=== PATIENT | female | born 1965 ===

== ENCOUNTER 2017-07-20 15:10 | Emergency (ER) | payer BC ==
[2017-07-20 15:11] VITALS: BMI 22.8
--- NOTE | 2017-07-20 15:38 | C.PDOC ---
History Of Present Illness Patient presents to ED c/o runny nose, nonproductive cough, sore throat since yesterday. She is also c/o right foot pain x 4 days. Patient denies falls/ injuries, fever, calf pain, chest pain, SOB, rash. Time Seen by Provider: 07/20/17 15:26 Chief Complaint (Nursing): Lower Extremity Problem/Injury History Per: Patient History/Exam Limitations: no limitations Current Symptoms Are (Timing): Still Present Severity: Mild Past Medical History Reviewed: Historical Data, Nursing Documentation, Vital Signs Vital Signs: Last Vital Signs Temp 98.4 F 07/20/17 15:50 Pulse 65 07/20/17 15:50 Resp 18 07/20/17 15:50 BP 118/74 07/20/17 15:50 Pulse Ox 100 07/20/17 16:28 - Medical History PMH: No Chronic Diseases - [email or web address] Procedures D & C NEC (05/18/14) HYSTEROSCOPY (05/18/14) Family History: States: No Known Family Hx - Social History Hx Alcohol Use: No Hx Substance Use: No - Immunization History Hx Tetanus Toxoid Vaccination: No Hx Influenza Vaccination: No Hx Pneumococcal Vaccination: No Review Of Systems Except As Marked, All Systems Reviewed And Found Negative. Constitutional: Negative for: Fever, Chills ENT: Positive for: Nose Congestion, Throat Pain Cardiovascular: Negative for: Chest Pain Respiratory: Positive for: Cough Gastrointestinal: Negative for: Nausea, Vomiting, Abdominal Pain, Diarrhea Genitourinary: Negative for: Dysuria, Hematuria Skin: Negative for: Rash Physical Exam - Physical Exam Appears: Well, Non-toxic, No Acute Distress Skin: Normal Color, Warm, Dry, No Rash Head: Normacephalic Ear(s): Bilateral: Normal Oral Mucosa: Moist Throat: Normal, No Erythema, No Exudate Cardiovascular: Rhythm Regular Respiratory: Normal Breath Sounds, No Rales, No Rhonchi, No Wheezing Gastrointestinal/Abdominal: Normal Exam, Bowel Sounds, Soft, No Tenderness Extremity: Tenderness (mild TTP at dorsum of right foot, no swelling/erythema), No Calf Tenderness, Capillary Refill (< 2 sec all digits ), No Deformity, No Swelling Pulses: Left Dorsalis Pedis: Normal, Right Dorsalis Pedis: Normal Neurological/Psych: Oriented x3 ED Course And Treatment O2 Sat by Pulse Oximetry: 100 (RA) Pulse Ox Interpretation: Normal - Other Rad right foot Xray X-Ray: Viewed By Me, Read By Radiologist Interpretation: Accession No. : [id number]. Patient Name / ID : LINK LANCASTER / [id number]. Exam Date : 07/20/2017 16:00:51 ( Approved ). Study Comment : Sex / Age : F / 51Y. Creator : Yesi Echols MD. Dictator : Yesi Echols MD. Sales Product Specialist : Clinical Nurse Manager : Yesi Echols MD. Approver2 : Report Date : 07/20/2017 16:11:21. My Comment : . PROCEDURE: Right Foot Radiographs. HISTORY: right foot pain. COMPARISON: None. FINDINGS: BONES: Bone alignment and mineralization are normal. There is no acute displaced fracture or bone. JOINTS: Normal. SOFT TISSUES: Normal. OTHER FINDINGS: None. IMPRESSION: Normal examination. CXR X-Ray: Viewed By Me, Read By Radiologist Interpretation: Accession No. : [id number]. Patient Name / ID : LINK LANCASTER / [id number]. Exam Date : 07/20/2017 16:06:05 ( Approved ). Study Comment : Sex / Age : F / 51Y. Creator : Yesi Echols MD. Dictator : Yesi Echols MD. Sales Product Specialist : Clinical Nurse Manager : Yesi Echols MD. Approver2 : Report Date : 07/20/2017 16:33:05. My Comment : . HISTORY: COMPARISON: No prior. TECHNIQUE: Chest PA and lateral. FINDINGS: LINES AND TUBES: None. LUNG AND PLEURA: The lungs are well inflated and clear. HEART AND MEDIASTINUM: The heart is not enlarged. The hilar and mediastinal contours are within normal limits. SKELETAL STRUCTURES: The bony structures are within normal limits for the patient's age. VISUALIZED UPPER ABDOMEN: Normal. OTHER FINDINGS: None. IMPRESSION: No active pulmonary disease. Progress Note: Xrays of right foot and chest ordered and reviewed. Patient given Motrin 600mg. Xrays (-) for fracture/dislocations, infiltrate/effusion. Patient given rxs for Tessalon and Naprosyn. She was instructed to follow up with podiatruy within 1 week, and PMD in 1-2 days. Reevaluation Time: 16:30 Reassessment Condition: Improved Disposition Counseled Patient/Family Regarding: Studies Performed, Diagnosis, Need For Followup, Rx Given - Disposition Referrals: Essence Briones MD [Staff Provider] - Podiatry Clinic [Outside] Disposition: HOME/ ROUTINE Disposition Time: 16:30 Condition: STABLE Additional Instructions: FOLLOW UP WITH YOUR DOCTOR IN 1-2 DAYS FOLLOW UP WITH PODIATRY WITHIN 1 WEEK IF SYMPTOMS PERSIST RETURN TO ER IF WORSE Prescriptions: Benzonatate [Tessalon Perles] 100 mg PO BID PRN #15 sgl PRN Reason: Cough Naproxen 375 mg PO BID PRN #20 tablet PRN Reason: pain Instructions: Foot Sprain (ED), Viral Syndrome (ED) Forms: [employer] (Portuguese) Print Language: MAURITANIAN - POA Present On Arrival: None - Clinical Impression Clinical Impression: Right foot pain, Viral upper respiratory infection
[2017-07-20 15:51] VITALS: BP 118/74; PULSE 65; RESP 18; TEMP 98.4
--- NOTE | 2017-07-20 16:13 | RAD ---
PROCEDURE: Right Foot Radiographs. HISTORY: right foot pain COMPARISON: None. FINDINGS: BONES: Bone alignment and mineralization are normal. There is no acute displaced fracture or bone JOINTS: Normal. SOFT TISSUES: Normal. OTHER FINDINGS: None. IMPRESSION: Normal examination.
[2017-07-20 16:28] VITALS: O2SAT 100
== END 2017-07-20 16:41 | disposition home or self-care (01) ==
LOC: C.ER 15:10
DX: M79.671 Pain in right foot (principal); J06.9 Acute upper respiratory infection, unspecified